=== PATIENT | male | born 1965 | race Caucasian/White ===

== ENCOUNTER 2017-12-17 05:38 | Inpatient (IN) ==
[2017-12-17] MEDS ORDERED: ceFAZolin 2,000 MG in PREMIX 1 EACH IV ONE (06:00)
[2017-12-17] MEDS ORDERED: VANCOMYCIN INJ 1,000 MG in SODIUM CHLORIDE 0.9% 250 ML IV ONE (06:00)
[2017-12-17] MEDS ORDERED: VANCOMYCIN 1,000 MG VIAL ONE (06:13)
[2017-12-17] MEDS ORDERED: GABAPENTIN 400 MG CAPSULE PO ONE (06:30)
[2017-12-17] MEDS ORDERED: FAMOTIDINE 20 MG TABLET PO ONE (06:30)
[2017-12-17] MEDS ORDERED: DIAZEPAM 5 MG TABLET PO ONE (06:30)
[2017-12-17] MEDS ORDERED: ACETAMINOPHEN 500 MG TABLET PO ONE (06:30)
[2017-12-17] MEDS ORDERED: ACETAMINOPHEN 500 MG TABLET ONE (08:22)
[2017-12-17] MEDS ORDERED: DIAZEPAM 5 MG TABLET ONE (08:22)
[2017-12-17] MEDS ORDERED: GABAPENTIN 400 MG CAPSULE ONE (08:22)
[2017-12-17] MEDS ORDERED: FAMOTIDINE 20 MG TABLET ONE (08:22)
[2017-12-17] MEDS: LACTATED RINGERS 1,000 ML IV SCH ×5 (08:57→23:47)
[2017-12-17] MEDS ORDERED: TRANEXAMIC ACID 1,000 MG/10 ML VIAL ONE (09:03)
[2017-12-17] MEDS ORDERED: BUPIVACAINE SPINAL 0.75% 2 ML AMP SPINAL ONE (09:07)
[2017-12-17] MEDS ORDERED: ROPIVACAINE 0.5% 30 ML VIAL ONE (09:17)
[2017-12-17] MEDS ORDERED: CYCLOBENZAPRINE 10 MG TABLET PO PRN (09:45)
[2017-12-17] MEDS ORDERED: ZALEPLON 5 MG CAPSULE PO PRN (09:47)
[2017-12-17] MEDS ORDERED: diphenhydrAMINE CAP 25 MG CAPSULE PO PRN (09:47)
[2017-12-17] MEDS ORDERED: MORPHINE 4 MG/1 ML VIAL IV PRN ×2 (09:47)
[2017-12-17] MEDS ORDERED: oxyCODONE IR 5 MG TABLET PO PRN ×2 (09:47)
[2017-12-17] MEDS ORDERED: MAGNESIUM HYDROXIDE SUSP 30 ML UDCUP PO PRN (09:47)
[2017-12-17] MEDS ORDERED: ONDANSETRON 4 MG/2 ML VIAL IV PRN (09:47)
[2017-12-17] MEDS ORDERED: DEXTROSE 50% 25 GM/50 ML VIAL IV PRN ×2 (09:49→13:29)
[2017-12-17] MEDS ORDERED: GLUCAGON 1 MG VIAL IM PRN ×2 (09:49→13:29)
[2017-12-17] MEDS ORDERED: MIDAZOLAM 2 MG/2 ML VIAL ONE (12:56)
[2017-12-17] MEDS ORDERED: PROPOFOL 200 MG/20 ML VIAL IV ONE (12:56)
[2017-12-17] MEDS ORDERED: PHENYLEPHRINE 1 MG/10 ML SYRINGE IV ONE (12:57)
[2017-12-17] MEDS ORDERED: LACTATED RINGERS 1,000 ML IV ONE (12:57)
[2017-12-17] MEDS ORDERED: fentaNYL 100 MCG/2 ML VIAL ONE (12:57)
[2017-12-17] MEDS ORDERED: SODIUM CHLORIDE 0.9% 100 ML IV ONE (12:57)
[2017-12-17] MEDS: INSULIN LISPRO 100 UNIT/ML SUBCUT SCH ×3 (13:37→21:26)
[2017-12-17] MEDS: KETOROLAC 30 MG/1 ML VIAL IV SCH ×2 (13:51→19:48)
[2017-12-17] MEDS: ceFAZolin 2,000 MG in PREMIX 1 EACH IV SCH ×2 (13:55→21:50)
[2017-12-17] MEDS: ACETAMINOPHEN 500 MG TABLET PO SCH ×2 (14:54→21:25)
[2017-12-17] MEDS: GABAPENTIN 400 MG CAPSULE PO SCH ×2 (14:55→21:25)
[2017-12-17] MEDS ORDERED: FAMOTIDINE 20 MG TABLET PO SCH (21:00)
[2017-12-17] MEDS: DOCUSATE SODIUM 100 MG CAPSULE PO SCH (21:25)
[2017-12-17] MEDS: metFORMIN 500 MG TABLET PO SCH (21:25)
[2017-12-18] MEDS: KETOROLAC 30 MG/1 ML VIAL IV SCH (01:34)
[2017-12-18] MEDS: LACTATED RINGERS 1,000 ML IV SCH (02:28)
[2017-12-18] MEDS: ACETAMINOPHEN 500 MG TABLET PO SCH ×2 (03:26→09:28)
[2017-12-18] MEDS ORDERED: FONDAPARINUX 2.5 MG/0.5 ML SYRINGE SUBCUT SCH (06:00)
[2017-12-18] MEDS ORDERED: KETOROLAC 30 MG/1 ML VIAL IV SCH (06:30)
[2017-12-18 06:45] LABS: Basophils % 0.4 % (0.0-0.8); Eosinophils # 0.2 10*3/uL (0.0-0.87); Eosinophils % 2.2 % (0.00-10.9); Hematocrit 32.6 VOL% (42.0-52.0); Hemoglobin 11.6 GM/DL (14.0-18.0); Immature Granulocytes % 0.4 %; Immature Granulocytes Absolute 0.03 #; Lymphocytes % 26.3 % (21.2-54.2); Mean Corpuscular HGB Conc 35.6 GM/DL (32-36); Mean Corpuscular Hemoglobin 32 PG (27-34); Mean Corpuscular Volume 89.8 FL (87-102); Mean Platelet Volume 10.4 FL (9.6-12.0); Monocytes # 0.5 10*3/uL (0.11-0.8); Monocytes % 6.8 % (1.7-12.7); Neutrophils % 63.9 % (38.7-73.9); Platelet Count 157 T/CUMM (130-400); Red Blood Count 3.63 MC/CUMM (3.8-5.5); White Blood Count 7.8 T/CUMM (4-12)
[2017-12-18 06:58] LABS: Calcium 8.2 MG/DL (8.5-10.1); Osmolality,Calculated 281.7 MOS/KG (273-304); Potassium 4.1 MMOL/L (3.5-5.1)
[2017-12-18] MEDS ORDERED: VENLAFAXINE XR 75 MG CAPSULE PO SCH (09:00)
[2017-12-18] MEDS ORDERED: TAMSULOSIN 0.4 MG CAPSULE PO SCH (09:00)
[2017-12-18] MEDS ORDERED: LISINOPRIL 10 MG TABLET PO SCH (09:00)
[2017-12-18] MEDS ORDERED: PIOGLITAZONE 45 MG TABLET PO SCH (09:00)
[2017-12-18] MEDS ORDERED: sitaGLIPtin 100 MG TABLET PO SCH (09:00)
[2017-12-18] MEDS ORDERED: LOVASTATIN 20 MG TABLET PO SCH (09:00)
[2017-12-18] MEDS ORDERED: GLIMEPIRIDE 4 MG TABLET PO SCH (09:00)
[2017-12-18] MEDS: GABAPENTIN 400 MG CAPSULE PO SCH (09:22)
[2017-12-18] MEDS: metFORMIN 500 MG TABLET PO SCH (09:24)
[2017-12-18] MEDS: DOCUSATE SODIUM 100 MG CAPSULE PO SCH (09:29)
[2017-12-18] MEDS: INSULIN LISPRO 100 UNIT/ML SUBCUT SCH ×2 (09:30→13:15)
[2017-12-18 11:36] VITALS: BP 178/94
[2017-12-18] MEDS ORDERED: CELECOXIB 200 MG CAPSULE PO SCH (14:00)
== END 2017-12-18 13:59 | disposition home or self-care (01) | DRG 470 ==
LOC: N.OR 05:38 → N.SDSINP 05:41 → N.3E 09:47
PROVIDERS: ADMIT Orthopaedic Surgery; ATTEND Orthopaedic Surgery